=== PATIENT | male | born 1980 | race Caucasian/White ===

== ENCOUNTER 2022-11-28 08:44 | Emergency (ER) | payer OTHER ==
[2022-11-28 08:51] VITALS: BP 191/100; PULSE 99; RESP 16; TEMP 98.1
[2022-11-28] MEDS ORDERED: FLUORESCEIN STRIPS 1 MG STRIP RIGHT EYE ONE (09:19)
[2022-11-28] MEDS ORDERED: TETRACAINE 0.5% OPHTH (PF) DROPS 4 ML BTL RIGHT EYE STA (09:19)
[2022-11-28] MEDS ORDERED: CIPROFLOXACIN 0.3% OPHTH SOLN 5 ML BTL RIGHT EYE STA (10:37)
--- NOTE | 2022-11-28 10:37 | ED ---
General Adult HPI - General Chief complaint: Eye Problems Stated complaint: eye problems Time Seen by Provider: 11/28/22 09:11 Source: patient, RN notes reviewed, old records reviewed Mode of arrival: ambulatory Limitations: no limitations - History of Present Illness Initial comments: Patient is a 42-year-old male who presents emergency Department complaining of right eye pain. Patient does have rheumatoid arthritis. 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 States it felt like a foreign body in his eye. States it was scratching and tried to flush it today without with eyedrops but feels like something is still going on. Endorses pain. Denies any change in vision. Denies any chest pain, shortness breath, abdominal pain, nausea, vomiting. Has no other acute complaint at this time. Presents for further evaluation. Is up-to-date on his tetanus. - Related Data Previous Rx's Medication Instructions Recorded Ciprofloxacin Ophth Soln [Cipro 2 drops RIGHT EYE Q6HR 7 Days #5 ml 11/28/22 0.3% Ophth Soln] Allergies Allergy/AdvReac Type Severity Reaction Status Date / Time bee venom protein (honey bee) AdvReac Rash/Hives Verified 11/28/22 08:47 Review of Systems ROS Statement: Those systems with pertinent positive or pertinent negative responses have been documented in the HPI. Review of Systems: CONST: Denies fever EYES: Endorses eye pain ENT: Denies nasal congestion C/V: Denies Chest pain RESP: Denies shortness of breath GI: Denies abdominal pain : Denies dysuria SKIN: Denies rash. MSK: Denies joint pain. NEURO: Denies headache ROS Other: All systems not noted in ROS Statement are negative. Past Medical History Past Medical History: No Reported History History of Any Multi-Drug Resistant Organisms: None Reported Past Surgical History: No Surgical Hx Reported Past Psychological History: No Psychological Hx Reported Smoking Status: Current every day smoker Past Alcohol Use History: Daily Past Drug Use History: Marijuana General Exam - General Exam Comments Initial Comments: General: Appears in no acute distress. HEAD: Normal with no signs of head trauma. EYES: PERRLA, EOMI,, no discharge. Pupils are 3 mm and equal bilaterally. No visual deficits. Visual acuity is within normal limits. No proptosis. His conjunctival injection. ENT: Hearing grossly intact. RESPIRATORY: No respiratory distress C/V: Regular rate and rhythm. ABD: Nondistended EXT: No obvious deformity SKIN: No rashes or lesions observed on exposed skin. NEURO: Alert and oriented 4. Limitations: no limitations Course Vital Signs 11/28/22 08:49 Temperature 98.1 F Pulse Rate 99 Respiratory 16 Rate Blood Pressure 191/100 O2 Sat by Pulse 98 Oximetry Medical Decision Making - Medical Decision Making Based on the patient's presentation and physical exam, I'm concerned for a corneal abrasion for the patient. Cannot rule out other injury such as retained foreign body in the patient's right eye. Therefore patient will be administered tetracaine drops for analgesia tonight, we will stain it with fluorescence staining. Eye will be evaluated. This included slit-lamp exam. Patient was in agreement this plan. Vital signs within acceptable limits. Slit-lamp exam revealed no obvious foreign body present. Fluorescein staining with Wood's lamp revealed a corneal abrasion located at the 9 o'clock position on the right eye. This is approximately 1 mm x 1 mm in size. I discussed the findings with the patient. He will be placed on ciprofloxacin eyedrops. He is not a contact lens user. He was in agreement with this plan. Patient does have a known senior it business analyst, Dr. Gardiner that he will follow-up with. Strict return precautions were discussed. He was in agreement this plan. I will provide the patient with a prescription for ciprofloxacin eyedrops. I instructed the patient to follow up with their PCP in the next 1-3 days. I provided contact information for follow up with ophthalmology. I explained that the patient should return to the emergency department if they experience any worsening symptoms. Strict return precautions were discussed with the patient. The patient expressed understanding of these instructions. I answered all questions that the patient had. The patient was discharged home in good condition with their prescriptions and follow up information. Was pt. sent in by a medical professional or institution (, PA, REFRIGERATION PERSON, urgent care, hospital, or [facility]...) When possible be specific @ -No Did you speak to anyone other than the patient for history (EMS, parent, family, police, friend...)? What history was obtained from this source @ -No Did you review nursing and triage notes (agree or disagree)? Why? @ -I reviewed and agree with nursing and triage notes Were old charts reviewed (outside hosp., previous admission, EMS record, old EKG, old radiological studies, urgent care reports/EKG's, [facility] records)? Report findings @ -No old charts were reviewed Differential Diagnosis (chest pain, altered mental status, abdominal pain women, abdominal pain men, vaginal bleeding, weakness, fever, dyspnea, syncope, headache, dizziness, GI bleed, back pain, seizure, CVA, palpatations, mental health)? @ -Corneal abrasion, corneal ulceration, retained foreign body. This list is not all inclusive. EKG interpreted by me (3pts min.). @ -None done X-rays interpreted by me (1pt min.). @ -None done CT interpreted by me (1pt min.). @ -None done U/S interpreted by me (1pt. min.). @ -None done What testing was considered but not performed or refused? (CT, X-rays, U/S, labs)? Why? @ -None What meds were considered but not given or refused? Why? @ -None Did you discuss the management of the patient with other professionals (professionals i.e. , PA, REFRIGERATION PERSON, lab, RT, psych nurse, director social, rooter operator, teacher, job placement officer, corrections caseworker)? Give summary @ -No Was smoking cessation discussed for >3mins.? @ -No Was critical care preformed (if so, how long)? @ -No Were there social determinants of health that impacted care today? How? (Homelessness, low income, unemployed, alcoholism, drug addiction, transportation, low edu. Level, literacy, decrease access to med. care, prison, rehab)? @ -No Was there de-escalation of care discussed even if they declined (Discuss DNR or withdrawal of care, Hospice)? DNR status @ -No What co-morbidities impacted this encounter? (DM, HTN, Smoking, COPD, CAD, Cancer, CVA, ARF, Chemo, Hep., AIDS, mental health diagnosis, sleep apnea, morbid obesity)? @ -None Was patient admitted / discharged? Hospital course, mention meds given and route, prescriptions, significant lab abnormalities, going to OR and other pertinent info. @ -Discharged home. See above for ED course course. Undiagnosed new problem with uncertain prognosis? @ -No Drug Therapy requiring intensive monitoring for toxicity (Heparin, Nitro, Insulin, Cardizem)? @ -No Were any procedures done? @ -No Diagnosis/symptom? @ -Corneal abrasion, right Acute, or Chronic, or Acute on Chronic? @ -Acute Uncomplicated (without systemic symptoms) or Complicated (systemic symptoms)? @ -Uncomplicated Side effects of treatment? @ -No Exacerbation, Progression, or Severe Exacerbation? @ -No Poses a threat to life or bodily function? How? (Chest pain, USA, CT, pneumonia, PE, COPD, DKA, ARF, appy, cholecystitis, CVA, Diverticulitis, Homicidal, Suicidal, threat to staff... and all critical care pts) @ -No Disposition Clinical Impression: Corneal abrasion Disposition: HOME SELF-CARE Condition: Good Instructions (If sedation given, give patient instructions): Corneal Abrasion (ED) Prescriptions: Ciprofloxacin Ophth Soln [Cipro 0.3% Ophth Soln] 2 drops RIGHT EYE Q6HR 7 Days #5 ml Is patient prescribed a controlled substance at d/c from ED?: No Referrals: None,Stated [Primary Care Provider] - 1-2 days Anupam Gallardo MD [STAFF PHYSICIAN] - 1-2 days Abiodun Gardiner MD [STAFF PHYSICIAN] - 1-2 days Time of Disposition: 10:25
== END 2022-11-28 11:20 | disposition home or self-care (01) ==
LOC: EC 08:44
DX: S05.01XA Injury of conjunctiva and corneal abrasion without foreign body, right eye, initial encounter (principal); F17.200 Nicotine dependence, unspecified, uncomplicated; F12.90 Cannabis use, unspecified, uncomplicated; Z91.030 Bee allergy status; X58.XXXA Exposure to other specified factors, initial encounter
CPT/HCPCS: 99283